=== PATIENT | male | born 1985 | race Caucasian/White ===

== ENCOUNTER → 2017-03-22 | Outpatient (CLI) | payer SELFPAY ==
--- NOTE | 2017-03-23 17:08 | US ---
EXAM DESCRIPTION: Thyroid CLINICAL HISTORY: NON TOXIC GOITER COMPARISON: None. TECHNIQUE: Routine sonographic imaging of the thyroid gland. FINDINGS: Right thyroid lobe is heterogeneous and large measuring 5.8 x 2.3 x 2.4 cm. No thyroid mass. No hyperemia. Thyroid isthmus is heterogeneous and enlarged measuring 0.67 cm. Left thyroid lobe is heterogeneous and prominent measuring 3.4 x 1.6 x 2 cm. No thyroid mass. No hyperemia. IMPRESSION: Heterogeneous mildly enlarged gland is observed without evidence of a focal mass Electronically signed by: Garrett Ayala MD 03/23/2017 5:06 PM CDT
== END ==
LOC: US 13:40
PROVIDERS: ATTEND Nurse Practitioner Family
DX: E04.9 Nontoxic goiter, unspecified (principal)

== ENCOUNTER → 2019-04-30 | Outpatient (CLI) | payer OTHER ==
--- NOTE | 2019-04-30 14:23 | RAD ---
EXAM DESCRIPTION: Lumbar Spine 3 Views CLINICAL HISTORY: LOW BACK PAIN COMPARISON: None Available. TECHNIQUE: AP/lateral/coned-down lateral FINDINGS: There is mild leftward curvature of the lumbar spine. Frontal view shows intact pedicles and transverse processes. Sacrum appears intact with normal SI joints. Transitional sixth lumbar type vertebral body. Lateral view shows mild wedging of the anterior L1 and L2 vertebral bodies which appears chronic and mild spurring at the thoracolumbar junction and upper lumbar levels anteriorly. . Schmorl's nodes are present. Disc height is well-preserved in the mid and lower lumbar spine. Normal bony mineralization. No destructive lesion. IMPRESSION: Negative for fracture. Electronically signed by: Delvin Kyle MD 04/30/2019 2:21 PM CDT
== END ==
LOC: RAD 13:39
PROVIDERS: ATTEND Nurse Practitioner
DX: M54.5 Low back pain (principal)